=== PATIENT | female | born 1950 | race Asian ===

== ENCOUNTER 2017-03-23 10:33 | Observation (INO) | payer MEDICARE, OTHER ==
[2017-03-23] VITALS (8 sets, daily range): BP systolic 110–168; BP diastolic 60–79; PULSE 83–92; RESP 16–22; O2SAT 95–99
[~2017-03-23] VITALS: Ht 142.2 cm; Wt 45.8 kg
--- NOTE | 2017-03-23 11:01 | ED.REPORT ---
HPI-Chest Pain 40 and Over Date of Service Mar 23, 2017 ED Provider: Emeli Jefferson MD Patient is a 67 woman with diabetes mellitus, glaucoma, osteoporosis, and neuropathy who presents with increasing chest pain over the last 8 months. Initially this pain was happening approximately one time per month and over the last 2 months has increased in frequency and duration and is now occurring approximately 2 times per day. She was visiting her product management internship's office today with some mild exertion and emotional upset she had onset of chest pain that is heavy in her chest and feels like she has just been punched. She has had no medical treatment prior to arrival. EKG in product management internship's office shows right bundle branch block. It is unclear if this is new or chronic. Patient does not have a history of hypertension and is on multiple medications for diabetes and glaucoma but no heart medications at this time. She endorses associated shortness of breath with some coughing and gagging. She had some mild headache over the last couple of days and has not had any today. She does not typically have headaches. She is having chronic low back pain, she has been previously diagnosed with compression fractures due to her osteoporosis. She is having no abdominal pain or localized weakness. Medications include: Gabapentin 300 mg daily Glipizide 10 mg twice a day Latanoprost Metformin 1000 mg twice a day Nexium 40 mg daily NovoLog per sliding scale Triamcinolone cream Nursing Notes Stated Complaint: CP Chief Complaint: Chest Pain Nursing Notes Reviewed: Yes Allergies: Coded Allergies: No Known Allergies (Unverified , 03/23/17) Scheduled Glipizide (Glipizide) 5 Mg Tablet 5 MG PO BID Insulin Aspart (NovoLOG U100 Insulin Vial) 100 U/Ml U 1 UNIT SUBQ ACHS Insulin Lispro (HumaLOG U100 Insulin Pen) 100 Unit/1 Ml Insuln.pen 45 UNIT SUBQ HS Blood Sugar Lispro Correction <151 0 units 151-175 1 unit 176-200 2 units 201-225 3 units 226-250 4 units 251-275 5 units 276-300 6 units 301-325 7 units 326-350 8 units 351-375 9 units 376-400 10 units >400 12 units Check blood sugars before meals and at bedtime. Use correction factor only before meals. Metformin (Metformin) 500 Mg Tablet 1,000 MG PO BID General Time Seen by MD: 11:02 Chief Complaint Chest pain Hx Obtained From: Patient Arrived By: Walk-in Sudden in Onset?: Yes Onset Occurred: Just prior to arrival Location: : Substernal Quality: Heaviness Severity: Current: Pain level 2 out of 10 Risk Factors HEART Score HEART for MACE: High index of susp (2), Age 65 or over (2), 1-2 CAD risk factors (1) HEART for MACE Score: 4-7 (mod risk 12%-16.6%) Well's Criteria for PE Well's PE Score: 0-2 pts (low risk 3.6%) Past Medical History Past Medical History Diabetes mellitus type II Glaucoma Osteoporosis Diabetic neuropathy Past Surgical History Cholecystectomy Multiple Dental procedures Smoking History Never Smoker Social History Alcohol Use: Denies alcohol use Drug Use: Denies drug use Other Social History: Ambulatory Status Independent Review of Systems A comprehensive review of systems was conducted with the patient and found to be negative except as above in the History of Present Illness. Physical Exam Initial Vital Signs Vital Signs (First) Date Time Temp Pulse Resp B/P Pulse Ox O2 Delivery O2 Flow Rate FiO2 03/23/17 10:37 36.6 85 18 139/60 99 Room Air Initial VS: Reviewed Head / Eyes: Atraumatic, Normocephalic ENT: Mucous membranes moist, Conjunctiva normal, No scleral icterus Neck: Supple, Non-tender Lymphatic: No lymphadenopathy Extremities: Vascular intact, Neuro intact, No swelling, No tenderness Skin: Warm, Dry, No cyanosis Neurologic: Alert, Oriented, Nonfocal Psychiatric: Mood/affect normal, Behavior normal, Normal thought content General/Constitutional: Awake, Alert, No acute distress, Well appearing Respiratory / Chest: Breath sounds NL, Breath sounds = bilat, No respiratory distress, No rales, No rhonchi, No wheezing, No chest tenderness Cardiovascular: Heart rate NL, Regular rhythm, Heart sounds NL, No murmurs, Peripheral circulation NL, Pulses = bilaterally, No gross BP differential Abdomen: Soft, Non-tender Interpretation & Diagnostics Initial troponin negative Lab Results Interpretation Result Diagram: 03/23/17 1050 03/23/17 1050 Test 03/23/17 10:50 White Blood Count 7.0th/mm3 (3.8-10.1) Red Blood Count 4.19mil/mm3 (3.90-5.20) Hemoglobin 12.6g/dL (12.0-15.6) Hematocrit 37.8% (35.0-46.0) Mean Corpuscular Volume 90.2fL (81-100) Mean Corpuscular Hemoglobin 30.1pg (27.0-35.0) Mean Corpuscular Hemoglobin Concent 33.3% (32.0-37.0) Red Cell Distribution Width 12.6% (12.3-15.4) Platelet Count 290bil/L (150-400) Neutrophils (%) (Auto) 68.4% (40-74) Lymphocytes (%) (Auto) 22.8% (14-46) Monocytes (%) (Auto) 6.2% (4-12) Eosinophils (%) (Auto) 1.9% (0-5) Basophils (%) (Auto) 0.4% (0-3) Sodium Level 139mEq/L (134-144) Potassium Level 4.3mEq/L (3.5-5.2) Chloride Level 100mEq/L (97-108) Carbon Dioxide Level 23mmol/L (18-29) Blood Urea Nitrogen 13mg/dL (8-27) Creatinine 0.57mg/dL (0.57-1.00) Estimat Glomerular Filtration Rate 152mL/min (>59) Glucose Level 245mg/dL (60-99) Calcium Level 9.3mg/dL (8.5-10.1) Magnesium Level 1.9mg/dL (1.6-2.6) Total Bilirubin 0.4mg/dL (0.0-1.2) Aspartate Amino Transf (AST/SGOT) 24U/L (0-50) Alanine Aminotransferase (ALT/SGPT) 33U/L (0-32) Alkaline Phosphatase 94U/L (25-165) Troponin T 0.010ug/L (0.0-0.011) Total Protein 7.3g/dL (6.4-8.4) Albumin 4.2g/dL (3.4-5.0) Thyroid Stimulating Hormone (TSH) 1.710uIU/mL (0.450-4.500) ECG Interpretation ECG Interpretation: Sinus rhythm at a rate of 80 Right bundle-branch block Possible ST elevation in V5 and V6 Time: 10:42 Interpreted by: ED physician X-Ray Chest Interpretation Chest Xray Interpretation: Normal for age, source of chest pain not seen Interpretation / Wet Read by: Interpret - Radiologist Re-Eval/Medical Decision Med Decision/Clinical Course Patient is a 67 woman with diabetes mellitus, glaucoma, osteoporosis, and neuropathy who presents with increasing chest pain over the last 8 months that has happened once or twice daily for the last 2 months. She has exacerbation of symptoms with mild exertion. Wells score is 0 which means she is low risk for pulmonary embolism. She has no associated upper back pain, normal chest x- ray. She has clear heart and lungs sounds, and equal pulses bilaterally in all 4 extremities, additionally she has no history of vomiting. All of which make cardiac tamponade, aortic dissection, tension pneumothorax, and esophageal rupture unlikely. Case was discussed with Dr. Gross her product management internship who recommends admission for observation and cardiac catheterization tomorrow. On- call product management internship Dr. Jean was contacted who agrees to see patient. Patient is admitted for unstable angina. Records from [facility] in [facility] were requested as patient had a cardiac intervention there approximately 2 years ago. Patient received 324 mg aspirin and one sublingual nitroglycerin after which her chest pain completely resolved. Lovenox, and 1 inch Nitropaste were administered prior to transfer to floor. Consultation : Referral / Consult Name: Renee Jean MD Consulted With: Cardiology Call Returned at: 12:59 Cabin Equipment Supervisor: Will see patient, Agrees with eval, Agrees with plan Counseled Regarding: Diagnosis, Lab results, Need for admission Discharge & Departure Shift Change Sign-Out Response to Therapy: Improved Primary Impression: Chest pain on exertion Additional Impression: Unstable angina Disposition: ADMITTED TO HOSPITAL Discharge Condition All VS Reviewed: Yes Condition: Stable Attending Statement Patient seen and examined with Dr. Cardona. Increasing unstable angina today anginal episode with minimal exertion not relieved with rest all occurring at her product management internship's office during her consultation first appointment with him. Initial blood work is unremarkable. Working on obtaining Lab results and reports from hospital in [place] from 2014. Pain-free after nitroglycerin. Given subcutaneous Lovenox has Nitropaste in place. He was initially very reluctant to stay in the hospital due to her disabled needing her help. Discussed the very real concern of dying from a heart attack if she were to go home and she opted to reevaluate her options admitted to the hospitalist service. Cardiology consult. Probable cardiac catheterization tomorrow. EKG shows bundle branch no priors for comparison no obvious STEMI. copies to: Elizabeth Tanner DO; Gal Gross MD; Renee Jean MD, Erika R DO Mar 23, 2017 11:01 Kell Duarte Mar 23, 2017 13:00 Emeli Jefferson MD Mar 23, 2017 14:45
[2017-03-23 11:10] LABS: BASOPHILS % (AUTO) 0.4 % (0-3); EOSINOPHILS % (AUTO) 1.9 % (0-5); MONOCYTES % (AUTO) 6.2 % (4-12); Mean Corpuscular Hemoglobin 30.1 pg (27.0-35.0); Mean Corpuscular Volume 90.2 fL (81-100); NEUTROPHILS % (AUTO) 68.4 % (40-74); Platelet Count 290 bil/L (150-400)
--- NOTE | 2017-03-23 11:15 | DRSVH ---
PROCEDURE: X-RAY CHEST ONE VIEW, PORTABLE ([id number]) INDICATIONS: CP TECHNIQUE: One view of the chest was acquired. COMPARISON: None. FINDINGS: Surgical changes and devices: None. Lungs and pleura: No pleural effusions or pneumothorax. Lungs are clear. Mediastinum: Mediastinal contours appear normal. Heart size is normal. Bones and chest wall: No suspicious bony lesions. Overlying soft tissues appear unremarkable. IMPRESSION: Normal for age, source of current symptoms is not seen. Dictated by: John Vanegas M.D. on 03/23/2017 at 11:13 Approved by: John Vanegas M.D. on 03/23/2017 at 11:13
[2017-03-23 11:31] LABS: TROPONIN T 0.01 ug/L (0.0-0.011)
[2017-03-23 11:42] LABS: Magnesium 1.9 mg/dL (1.6-2.6)
[2017-03-23] MEDS ORDERED: Nitroglycerin 2% 1 Gm Ointment TOPICAL SCH (13:10)
[2017-03-23] MEDS ORDERED: Nitroglycerin 2% 1 Gm Ointment TOPICAL ONE (13:52)
[2017-03-23] MEDS ORDERED: Polyethylene Glycol (PEG) 17 Gm Powder PO PRN (13:55)
[2017-03-23] MEDS ORDERED: Ondansetron 2 mg/mL 2 mL Inj IVPUSH PRN (13:55)
[2017-03-23] MEDS ORDERED: Atropine 1 mg/10 mL (Code) Syringe IVPUSH PRN (13:55)
[2017-03-23] MEDS ORDERED: Senna-Docusate 8.6-50 mg Tablet PO PRN (13:55)
[2017-03-23] MEDS ORDERED: Alum-Mag Hydrox-Simeth 30 mL Suspension PO PRN (13:55)
[2017-03-23] MEDS: 0.9% Sodium Chloride 1,000 ML IV SCH (15:07)
[2017-03-23] MEDS ORDERED: Glucose 40% Oral Gel 15 Gm Tube PO PRN (15:20)
--- NOTE | 2017-03-23 15:24 | PCM.HPMED ---
Subjective Date of Service Mar 23, 2017 Primary Provider: Admitting Physician: Bonifacio Bach MD Primary Care Physician: Nopalessandro Attending Physician: Bonifacio Bach MD Chief Complaint: Chest pain History of Present Illness: Patient is a 67-year-old female with diabetes with neuropathy and osteoporosis who presents to the emergency department from Dr. Sanchez office due to 8 months of intermittent 2 out of 10 left-sided, nearly substernal chest pain with associated shortness of breath. Patient states that this occurs sitting on the couch and when cooking, but she does not feel that they are connected to exertion. These episodes and getting more frequent, where it used to be one every couple weeks it is now happening twice daily. While in office today the patient had an episode of this chest pain and describes it as sharp and nonradiating, but was associated with shortness of breath. There was no diaphoresis, nausea, lightheadedness, dizziness, or racing heartbeat. Patient states that her last stress test was done in 2010 due to similar chest pain which was normal. Dr. Jean saw the patient in cardiology consultation in the emergency room.. In the emergency department the patient's EKG showed a possible new right bundle branch block with some non-specific ST changes. Troponin was negative, as was chest x-ray. Blood work was unremarkable except for very mild elevation in ALT and blood glucose of 245. Nitroglycerin was administered which decreases the pain. The patient was still on nitroglycerin patch when interviewed and stated that the pain was coming back in the same spot. Therefore the patient was brought in under observation to the hospitalist service for further evaluation and treatment. Review of Systems: General: The patient has no fever, chills or diaphoresis. The patient has no recent weight loss. HEENT: Patient has a mild headache. The patient states that she normally does not get headaches. Patient has no diplopia, patient has no changes in vision. Patient has no problems with her ears, nose or throat. Patient has no known dental problems. Patient has no pharyngitis or history of thrush. Neck: Patient has no stiffness in the neck. Patient has no lymphadenopathy. Patient has no other problems with their neck. Pulmonary: Patient has no shortness of breath, no cough, no expectoration of sputum. Patient has no pleurisy. Patient has no chest pain. Patient has no history of asthma or COPD. Cardiovascular: Patient has no chest pain. Patient has no history of heart murmur. Patient has no palpitations. Patient has no history of myocardial infarction. Patient has no history of coronary artery disease. Gastrointestinal: Patient has no history of hepatitis A, B or C. Patient has no history of peptic ulcer disease. Patient has no history of gastroesophageal reflux disease. Patient has no history of nausea, vomiting, or diarrhea. Patient has no history of hematemesis, hematochezia, or melena. Patient has no history of colitis. Renal: Patient has no history of kidney disease. The patient states that she had one kidney stone pass one time and it was the most painful thing she is ever experienced. Genitourinary: Patient has no history of dysuria, frequency, or incontinence. Patient has no previous history of genitourinary problems. Musculoskeletal: Patient has no history of muscular skeletal problems. Neurologic: Patient has no history of stroke, no history of seizure, no history of TIA. Psychiatric: Patient has no history of psychiatric problems. The remainder of the entire review of systems was reviewed with patient and is as mentioned above otherwise negative. Allergies Coded Allergies: No Known Allergies (Unverified , 03/23/17) Home Medications Gabapentin 300 mg daily Glipizide 10 mg twice a day Latanoprost Metformin 1000 mg twice a day Nexium 40 mg daily NovoLog per sliding scale Triamcinolone cream PMH Diabetes mellitus type II Glaucoma Osteoporosis Diabetic neuropathy Surgical History Cholecystectomy Multiple Dental procedures Family History Father in late 50s of diabetes and cardiac disease; also had a brain tumor Mother of 84 from what sounds like sudden cardiac Social History Hx Alcohol Use: No Hx Substance Use: No Hx Tobacco Use: No Smoking Status: Never Smoker Living Arrangement: with Family Additional Information The patient was born in [place] and then was raised in [place] where she graduated high school. Patient took some college classes but never graduate. Patient worked for [employer] with her . Her and her came on a vacation to [place] and [facility] [place] the area and moved to the [facility] years ago. Patient worked for [employer] until her hand was crushed and she was able to have surgery on her hand a year later. Meanwhile, she was fired from her job. Patient states she never smoked, and never drank and she never did drugs. Patient has been for 45 years. The patient is 4 para 4 M1 and has 1 set of twins. The patient lives with her in [place]. Exam Vital Signs Vital Sign - Last Date Time Temp Pulse Resp B/P Pulse Ox O2 Delivery O2 Flow Rate FiO2 03/23/17 13:23 84 22 110/77 99 Room Air 03/23/17 10:37 36.6 Exam General: Patient is in no apparent distress. HEENT: Head is atraumatic and normocephalic. Eyes: Pupils are equally round and reactive to light and accommodation. Extraocular muscles are intact. Sclera are white, anicteric. Subconjunctival mucosa is pink. Ears and nose are unremarkable. Oropharynx: There is no mucosal lesions, there is no thrush, there is no pharyngitis. Neck: Is supple, there are no nodes, or masses or tenderness. Chest: Is clear to auscultation and percussion. There are no rales, rhonchi, wheezes or rubs. Heart: Rate, rhythm is regular. There is no murmur, rub or gallop. Abdomen: Good bowel sounds are present. Abdomen is soft, nontender, no organomegaly or masses were appreciated. Extremities: Are symmetrical and well perfused. There is no edema, there is no cellulitis, no rash. Neurologic: There are no focal neurological deficits. Cranial nerves II through XII are intact. There are no sensory or motor deficits. Psychiatric: Patients mood is calm and shows no sign of agitation. Genital: Deferred Rectal: Deferred Musculoskeletal: Patient is tender to palpation over the area that she complains of chest pain; she states the pain was re-created on palpation Lab and Diagnostics Result Diagram: 03/23/17 1050 03/23/17 1050 X-Rays, CTs and MRIs Chest x-ray Normal for age, source of current symptoms is not seen. Dictated by: John Vanegas M.D. on 03/23/2017 at 11:13 12-lead ECG Appears to be normal sinus rhythm with right bundle branch block, rate of 80. Assessment & Plan Patient is a 67-year-old female with reported type I diabetes with neuropathy who presents emergency department from her power engineer office due to 8 months of intermittent mild to moderate left-sided chest pain that was re-created on palpation. However due to a strong family history, long-standing diabetes mellitus and nature of description of chest pain the patient was brought in under observation to the hospitalist service for further evaluation and treatment Acute chest pain; present on admission; ongoing -Last stress test was in 2010 and was negative; done due to similar symptoms; initially concerned for unstable angina -Symptoms have resolved; unsure whether nitroglycerin was really effective or not as the pain was returning while wearing nitroglycerin patch -Discussed with Dr. Jean who will consult and his defense attorney seen the patient. We appreciate her time and expertise. -Perfusion stress test ordered for a.m. -Trend troponins -The patient was Loaded with Plavix and daily doses of 75 mg a day have been ordered. - The patient has been placed on therapeutic doses of Lovenox -Continue Aspirin -Atorvastatin started -EKG tomorrow morning Diabetes with neuropathy; present on admission; ongoing -Patient reports she has had this disease since she was a baby -Records indicate this is type II diabetes and patient is on glipizide and metformin which would be interesting if she was a type I -Patient is also taking NovoLog on a sliding scale -Gabapentin for neuropathy -We will start patient on 10 units of Lantus today -A1c ordered -Low-dose lispro correctional -Hold metformin and glipizide -Consider stopping glipizide on discharge as patient is also on insulin and this increases risk of hypoglycemia Glaucoma; present on admission; stable -Continue latanoprost Disposition: Patient has been admitted to the general medical floor under observation. Dr. Jacqueline Armenta will follow in a.m. Full code Pain Evaluation: Adequate Pain Control VTE Prophylaxis: Sub-Q Enoxaparin Resuscitation Status: CPR: Attempt Resuscitation Dennis Jackman DO Mar 23, 2017 13:34 Bonifacio Bach MD Mar 23, 2017 23:44
[2017-03-23] MEDS ORDERED: METF500T4 PO (15:36)
[2017-03-23] MEDS ORDERED: INSU100C8 SUBQ (15:36)
[2017-03-23] MEDS ORDERED: GLPZ5T PO ×2 (15:36→16:34)
[2017-03-23] MEDS ORDERED: INSU100I18 SUBQ (15:36)
[2017-03-23] MEDS: Sodium Chloride LOK Flush 10 mL Syringe IVFLUSH SCH ×2 (16:13→22:43)
[2017-03-23] MEDS ORDERED: GABA-502 PO (16:32)
[2017-03-23] MEDS ORDERED: GLIP10TA10 PO (16:35)
[2017-03-23] MEDS ORDERED: TR5C15 TOP (16:42)
[2017-03-23] MEDS ORDERED: LATA2.5D6 BOTH_EYES (16:42)
[2017-03-23] MEDS ORDERED: INSU100I SUBQ (16:42)
[2017-03-23] MEDS ORDERED: ESOM40CA41 PO (16:42)
[2017-03-23] MEDS: Insulin LISPRO 300 Unit/3 mL Inj SUBQ SCH ×2 (17:10→21:29)
--- NOTE | 2017-03-23 17:53 | CONS ---
[address] [address] CONSULTATION REPORT PATIENT: MORTEZA DIXON : 1950 MR#: [id number] ADMIT: 03/23/2017 JOB ID: [id number] DATE OF SERVICE: 03/23/2017 CHIEF COMPLAINT: Chest pain. HISTORY OF PRESENT ILLNESS: The patient is a 67-year-old woman with type 1 diabetes and what sounds like some insulin resistance; complicated by retinopathy and neuropathy. The patient reports chest discomfort that occurs without a pattern of trigger. She says it can occur when she is lying in bed, reading or watching TV. It feels sharp. It does not radiate. It is associated with shortness of breath. She reported to Cardiology Clinic for a new patient visit with Dr. Gross today. Unfortunately, she had a disagreement with the front office staff. As a result, the EKG obtained in clinic during chest discomfort demonstrated a normal sinus rhythm, normal axis, no left ventricular hypertrophy, no ST-segment changes and right bundle-branch block. The patient was referred to the emergency department for further evaluation. She was evaluated by ER physician Dr. Jefferson. Her troponin was negative. Pain responded favorably to a single sublingual nitroglycerin and Cardiology was consulted to assist with management. PAST MEDICAL HISTORY: Diabetes-hemoglobin A1c is pending. Patient just recently established with a primary care provider, Dr. Walker, at the residency clinic. No recent labs are available for review. The patient says she was instructed to obtain an insulin pump, but did not follow through instruction of multiple endocrine specialists. She says she had what sounds like proliferative retinopathy treated by "eye surgery." The patient denies any hospitalizations for heart disease. She reports having had a screening stress test in [place] but was never a patient who underwent cardiac catheterization. PAST SURGICAL HISTORY: Cholecystectomy and "eye surgery" for what sounds like proliferative retinopathy. FAMILY HISTORY: She says multiple family members have diabetes. The only sibling that is alive is her "baby brother" who does not have diabetes. SOCIAL HISTORY: She is . She is back in the area of [facility] after coming back here from [place] two years ago. She recently established with Dr. Walker and has not had any labs yet. This patient is a lifetime nonsmoker. She resides with her disabled and her disabled adult son. ROS: chest pain and fatigue; otherwise 10 point ROS is negative. ALLERGIES: No known drug allergies. HOME MEDICATIONS: Patient takes no medications that are prescribed by a physician, but she buys medications from a [facility] without a prescription. She does not take aspirin. She says "I weaned myself off of old pills" for hyperlipidemia and heart health. She takes metformin 1000 mg twice a day. She does not know if it is extended release or short-acting. She takes glipizide 5 mg twice a day. She takes Neurontin 300 mg once a day. She reports NovoLog on a sliding scale insulin, but it is a little bit unclear what she takes for long-acting. She says she takes long-acting Humalog 45 units at night but cannot tell us whether it is 70/30 or what exactly she is taking. PHYSICAL EXAMINATION: Vital signs: Temperature 36.3, blood pressure 153/79, pulse 85 beats per minute. Satting 97% on room air. Very pleasant lady in no apparent distress. Eyes: No scleral icterus. Neck is supple. No lymphadenopathy. No carotid bruits. Heart normal S1, S2. No murmurs, rubs, or gallops. Lungs: Clear to auscultation anteriorly. Abdomen is soft, positive bowel sounds. No hepatosplenomegaly. Extremities: Warm, well perfused. No clubbing, cyanosis, or edema. Skin: No rashes or lesions. EKG: Right bundle-branch block. LABS: Show negative troponin x1. TSH is normal. Electrolytes are normal. Liver function is normal. CBC is normal. ASSESSMENT AND PLAN: This is a 67-year-old woman with a significant coronary disease risk factors of uncontrolled longstanding diabetes since she was a teenager as well as medication noncompliance. It sounds like her chest discomfort is somewhat atypical in that it is not triggered by exertion. It also feels sharp. But, it is somewhat compelling just given the degree of her poor glycemic control, and the fact that it was alleviated by sublingual nitroglycerin. I recommend serial troponins every 8 hours. If they remain negative by tomorrow, she would benefit from noninvasive ischemic evaluation via graded exercise stress test with myocardial perfusion imaging. Additionally, I think she would benefit from echocardiogram. However, if her troponins are elevated, she would benefit from invasive evaluation via cardiac catheterization. I discussed the case with Dr. Brito and Dr. Jefferson. Thank you very much for the opportunity to participate in this patient's care. LAKESHIA
--- NOTE | 2017-03-23 18:45 | NUR ---
Admit to [facility] Patient report called by ED nurse. Patient arrived to room 3028 via gurney. Patient oriented to room, staff, call light, and visiting hours. Patient med rec completed. Patient was going to call her to bring in her medications to use her insulin, but was informed no outside medications are to be used in the hospital. Patient became anxious and mentioned leaving AMA, but nurse explained that insulin and other medications would be ordered here at the hospital. Patient was understanding no skin issues notice. Patient denied chest pain and any other pain. Patient does have nitro paste on chest.
[2017-03-23] MEDS ORDERED: Insulin GLARgine 100 Unit/mL Syringe SUBQ SCH (21:00)
[2017-03-23 21:51] LABS: Creatine Kinase 79 U/L (21-215)
--- NOTE | 2017-03-23 23:33 | NUR ---
refused Lantus Pt's BG @HS was 147. Pt refused Lantus because she stated that it doesn't work on her. She further reported that her cap sewer has change it to Novolog and Humalog.
[2017-03-24 00:38] VITALS: BP 138/71; PULSE 79; RESP 16; O2SAT 96
[2017-03-24 04:27] VITALS: BP 165/76; PULSE 68; RESP 16; O2SAT 98
[2017-03-24] MEDS: 0.9% Sodium Chloride 1,000 ML IV SCH ×2 (05:08→14:53)
--- NOTE | 2017-03-24 05:32 | NUR ---
chest discomfort Pt started having 5/10 chest discomfort, "just like at home", around 5AM for few minutes. no changes on tele. Pt sleeping at this time. NPO since midnight for stress test this AM.
[2017-03-24 05:37] LABS: APPEARANCE,URINE CLEAR (CLEAR,HAZY); COLOR,URINE STRAW (YELLOW); OCCULT BLOOD,URINE TRACE (NEGATIVE); PH,URINE 5.5 (5.0-8.0); UROBILINOGEN,URINE NORMAL (NORMAL)
[2017-03-24 07:29] LABS: BASOPHILS % (AUTO) 0.5 % (0-3); EOSINOPHILS % (AUTO) 3.3 % (0-5); MONOCYTES % (AUTO) 7.9 % (4-12); Mean Corpuscular Hemoglobin 30.1 pg (27.0-35.0); Mean Corpuscular Volume 90.9 fL (81-100); Platelet Count 273 bil/L (150-400)
[2017-03-24] MEDS: Insulin LISPRO 300 Unit/3 mL Inj SUBQ SCH ×2 (08:00→12:08)
[2017-03-24] MEDS: Sodium Chloride LOK Flush 10 mL Syringe IVFLUSH SCH (08:30)
[2017-03-24 10:55] VITALS: PULSE 72
--- NOTE | 2017-03-24 12:34 | PCM.PNMED ---
Subjective Date of Service Mar 24, 2017 Subjective Patient seen and examined. She is after stress test. No chest pain at this point. She relates her chest pain to anxiety. Vitals stable. Exam Vital Signs Vital Sign - Last Date Time Temp Pulse Resp B/P Pulse Ox O2 Delivery O2 Flow Rate FiO2 03/24/17 10:55 72 03/24/17 04:27 36.7 16 165/76 98 Room Air Intake and Output 03/23/17 03/23/17 03/24/17 Cumulative From/Thru 15:00 23:00 07:00 03/23/17 10:37 - 03/24/17 06:36 Intake Total 362 ml 1187 ml 1549 ml Output Total 1050 ml 1050 ml Balance 362 ml 137 ml 499 ml Intake Oral 250 ml 340 ml 590 ml IV Total 112 ml 847 ml 959 ml Output Urine Total 1050 ml 1050 ml # Voids 1 1 Exam General: Patient is in no apparent distress. Neck: Is supple, there are no nodes, or masses or tenderness. Chest: Is clear to auscultation and percussion. There are no rales, rhonchi, wheezes or rubs. Heart: Rate, rhythm is regular. There is no murmur, rub or gallop. Abdomen: Good bowel sounds are present. Abdomen is soft, nontender, no organomegaly or masses were appreciated. Neurologic: There are no focal neurological deficits. Cranial nerves II through XII are intact. There are no sensory or motor deficits. Psychiatric: Patients mood is calm and shows no sign of agitation. Lab and Diagnostics Result Diagram: 03/24/17 0705 03/24/17 0705 X-Rays, CTs and MRIs Chest x-ray Normal for age, source of current symptoms is not seen. Dictated by: John Vanegas M.D. on 03/23/2017 at 11:13 12-lead ECG Appears to be normal sinus rhythm with right bundle branch block, rate of 80. Cardiac Echo Impressions Interpretation Summary The left ventricle is normal in size. There is moderate proximal septal thickening noted. There is no echo evidence for significant left ventricular outflow tract obstruction. The left ventricular ejection fraction is normal. The ejection fraction is estimated to be 60-65%. There are no focal wall motion abnormalities. Assessment of diastolic parameters indicates a relaxation abnormality of the left ventricle, consistent with normal filling pressures. The right ventricle is normal in size, thickness and function. The right ventricular systolic pressure is estimated at least 25 mmHg assuming a right atrial pressure of 3 mm Hg. The left atrial size is normal. Right atrial size is normal. There is no significant valvular heart disease. The aortic root is normal size. Additional Diagnostics Stress test IMPRESSION: This is a normal myocardial perfusion. There is no evidence of fixed or reversible perfusion defects. LV ejection fraction is normal. Stress EKG is normal. Patient denied any chest pain during treadmill study. The patient has excellent exercise capacity. 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 However due to a strong family history, long-standing diabetes mellitus and nature of description of chest pain the patient was brought in under observation to the hospitalist service for further evaluation and treatment Acute chest pain; present on admission; ongoing -Last stress test was in 2010 and was negative; done due to similar symptoms; initially concerned for unstable angina -Symptoms have resolved; unsure whether nitroglycerin was really effective or not as the pain was returning while wearing nitroglycerin patch -Discussed with Dr. Jean who will consult and his personal injury attorney seen the patient. We appreciate her time and expertise. -Perfusion stress test done, pending result - Echo ordered -The patient was Loaded with Plavix and daily doses of 75 mg a day have been ordered. - The patient has been placed on therapeutic doses of Lovenox -Continue Aspirin -Atorvastatin started Diabetes with neuropathy; present on admission; ongoing -Patient reports she has had this disease since she was a baby -Records indicate this is type II diabetes and patient is on glipizide and metformin which would be interesting if she was a type I -Patient is also taking NovoLog on a sliding scale -Gabapentin for neuropathy -We will start patient on 10 units of Lantus -A1c 8.5 -Low-dose lispro correctional -Hold metformin and glipizide Glaucoma; present on admission; stable -Continue latanoprost Disposition: Patient has been admitted to the general medical floor under observation. Full code VTE Prophylaxis: Sub-Q Enoxaparin VTE Mechanical Devices: Venous Foot Pump Resuscitation Status: CPR: Attempt Resuscitation Time spent 35 mins Joel Phillips MD Mar 24, 2017 12:34
--- NOTE | 2017-03-24 12:50 | NUR ---
Social Work-initial assessment. readiness for discharge: Data:See initial assessment. Pt is a 67 y/o female who was admitted on 03/23/17 for unstable angina per H&P. Pt's insurance is [employer] and PCP is not listed. EMR reviewed. Pt's readmission score is 3-high risk. SW met with pt to discuss discharge planning, SW role explained. Pt is alert and oriented x3. Pt resides at home with her where she remains independent with ADLS. Pt drives and does not use any DME. Pt has no HH or SNF history. Pt has no intermediate care insurance or VA benefits. SW discussed DPOA/ advanced directive, pt confirms she has not completed this and is not interested in any information. Pt is working on PCP in this community. SW provided pt with discharge planning checklist and encouraged her to call with any questions, phone number provided. Per RN notes, pt has been up independent in his room. No anticipated discharge needs. SW will continue to follow if needs arise. Assessment:Pt who is independent at baseline. Plan:Pt to discharge home today via POV. No anticipated discharge needs. SW will continue to follow if needs arise. SYDNEE Persaud Addendum: 03/24/17 at 1256 by ADA QURESHI Amended: Links added.
[2017-03-24 13:58] VITALS: BP 160/72; PULSE 85; RESP 16; O2SAT 98
--- NOTE | 2017-03-24 14:25 | DRSVH ---
PROCEDURE: 1 DAY TREADMILL STRESS TEST Rest and exercise myocardial perfusion SPECT with gated imaging and ejection fraction RADIOPHARMACEUTICAL: 8.6 mCi Tc-99m tetrafosmin IV at rest and 25.2 mCi Tc-99m tetrafosmin IV at peak exercise. [id number] was performed. INDICATIONS: CP. TECHNIQUE: Radiopharmaceutical was injected at peak stress test, and also at rest. SPECT images wer e obtained. SPECT myocardial perfusion images were displayed in short axis, horizontal long axis, an d vertical long axis views. Gated images were reviewed using iGo[employer] s.r.l.QUANT software. COMPARISON: None. CARDIAC STRESS: A standard [place] treadmill exercise tolerance test was performed by the patient under the supervision of an attending staff. The patient exercised for 10 minutes and 20 seconds; functional aerobic impa irment (DALE) is -70 %. Hemodynamic data: There is normal blood pressure and heart rate response to exercise stress. Patien t achieved 90% of maximum predicted heart rate at peak exercise. Symptoms: Patient denied chest pain during exercise. EKG: No diagnostic EKG changes of ischemia; no ectopy. FINDINGS: Raw data: There is good myocardial labeling by radiotracer. No significant motion artifacts. Left ventricle function: Gated images demonstrate normal left ventricle wall thickening. No segment al wall motion abnormality. The left ventricle resting end-diastolic volume is 45 mL. Left ventricl e stress ejection fraction is >70% ; normal values are above 45%. Myocardial perfusion: There is normal distribution of activity in the left and right ventricular robert cardium. No fixed or reversible perfusion defects. IMPRESSION: This is a normal myocardial perfusion. There is no evidence of fixed or reversible perfus ion defects. LV ejection fraction is normal. Stress EKG is normal. Patient denied any chest pain duri ng treadmill study. The patient has excellent exercise capacity. Dictated by: Jesús Muñoz Jr., M.D. on 03/24/2017 at 14:05 Approved by: Jesús Muñoz Jr., M.D. on 03/24/2017 at 14:22
--- NOTE | 2017-03-24 15:13 | DRSVH ---
[facility] [address] [place] [address] Echocardiogram Report Name: MORTEZA DIXON Study Date: 03/24/2017 Height: 56 in Hospital Exam Location: [facility] Weight: 101 lb Gender: Female BSA: 1.3 m2 : 1950 Age: 67 yrs BP: 165/76 mmHg Reason For Study: Chest pain Ordering Physician: Performed By: Sue Harden Referring Physician: OLEKSANDR MANE Interpretation Summary The left ventricle is normal in size. There is moderate proximal septal thickening noted. There is no echo evidence for significant left ventricular outflow tract obstruction. The left ventricular ejection fraction is normal. The ejection fraction is estimated to be 60-65%. There are no focal wall motion abnormalities. Assessment of diastolic parameters indicates a relaxation abnormality of the left ventricle, consistent with normal filling pressures. The right ventricle is normal in size, thickness and function. The right ventricular systolic pressure is estimated at least 25 mmHg assuming a right atrial pressure of 3 mm Hg. The left atrial size is normal. Right atrial size is normal. There is no significant valvular heart disease. The aortic root is normal size. Procedure: A two-dimensional transthoracic echocardiogram with color flow and Doppler was performed. The study quality was technically adequate. There is no prior echocardiogram noted for this patient. The patient was in normal sinus rhythm during the exam. Left Ventricle: The left ventricle is normal in size. There is moderate proximal septal thickening noted. There is no echo evidence for significant left ventricular outflow tract obstruction. The left ventricular ejection fraction is normal. The ejection fraction is estimated to be 60-65%. There are no focal wall motion abnormalities. Assessment of diastolic parameters indicates a relaxation abnormality of the left ventricle, consistent with normal filling pressures. Right Ventricle: The right ventricle is normal in size, thickness and function. Atria: The left atrial size is normal. Right atrial size is normal. There is no Doppler evidence for an interatrial shunt. Mitral Valve: The mitral valve is normal. There is no mitral regurgitation noted. Aortic Valve: The aortic valve is normal in structure and function. There is trace aortic regurgitation. Tricuspid Valve: The tricuspid valve is normal. There is mild tricuspid regurgitation. The right ventricular systolic pressure is estimated at least 25 mmHg assuming a right atrial pressure of 3 mm Hg. Pulmonic Valve: The pulmonic valve leaflets are thin and pliable; valve motion is normal. There is no pulmonic valvular regurgitation. There is no significant valvular heart disease. Great Vessels: The aortic root is normal size. The ascending aorta is normal in size. The aortic arch is normal in size. The pulmonary artery is not well visualized, but is probably normal size. The IVC is of normal diameter and collapses greater than 50% with a sniff. This suggests a low right atrial pressure of 3 mm Hg. Pericardium/ Pleura There is no pericardial effusion. There is no pleural effusion. MMode/2D Measurements & Calculations LVIDd: 3.8 cm RA long axis LVOT diam: 1.9 cm LVIDs: 2.1 cm LA A2 area: 15.4 cm AoV Opening FS: 44.8 % LA A4 area: 14.1 cm RA area EPSS: 0.46 cm LA length (vol) Ao root diam IVSd: 1.4 cm : 11.7 cm LVPWd: 0.86 cm LA vol: 39.6 ml RA vol asc Aorta Diam LA vol index : 27.9 ml RA Ao Arch Diam (Prox : 21.0 mm2 Trans): 2.6 cm IVC diam: 1.6 cm LV choi. diameter/BSA LV sys. diameter/BSA RVD1 (basal) RVD2 (mid): 2.5 cm (cm/m^2): 2.9 (cm/m^2): 1.6 TAPSE: 2.3 cm Doppler Measurements & Calculations Ao V2 max MV E max scott MV E/A: 0.79 TR max scott : 115.0 cm/sec : 65.3 cm/sec Med Peak E' Scott : 231.7 cm/sec Ao max PG MV A max scott TR max PG : 5.3 mmHg : 82.7 cm/sec E/E' med: 12.4 : 21.5 mmHg Ao mean PG MV P1/2t: 57.1 msec Lat Peak E' Soctt PA V2 max : 92.2 cm/sec LVOT Max Scott E/E' lat: 5.9 PA mean PG : 97.6 cm/sec E/e' average: 9.1 PA Accel Time LILY(I,D): 2.3 cm : 0.11 sec sev ratio MV dec time MV P1/2t max scott Ao V2 mean LV V1 max PG : 0.19 sec : 85.6 cm/sec MVA(P1/2t): 3.9 cm2 Ao V2 VTI: 24.7 cm LV V1 VTI LILY(V,D): 2.4 cm2 : 20.1 cm PA V2 mean LILY indexed to BSA : 63.0 cm/sec (cm^2/m^2): 1.8 Reading Physician:PRIYANK
--- NOTE | 2017-03-24 15:57 | PCM.DIMED ---
Discharge Instructions Date of Service Mar 24, 2017 Dates of Hospitalization Mar 23, 2017 at 13:19 Discharge Diagnosis Discharge Diagnosis Costochondritis Diet Discharge Diet: Heart Healthy, Diabetic Activity Discharge Activity: No restrictions Call your provider Call your provider for: Fever or Chills, Chest pain, Vomitting Patient Instructions Follow-up with PCP in: 1 week (Diabetes management ) Joel Phillips MD Mar 24, 2017 15:57
[2017-03-24] MEDS ORDERED: INSU100V7 SUBQ (15:59)
--- NOTE | 2017-03-24 16:02 | PCM.DC.MED ---
Discharge Summary Date of Service Mar 24, 2017 Dates of Hospitalization Date of Hospital Admission Mar 23, 2017 at 13:19 Date of Discharge: Mar 24, 2017 Providers: Admitting Physician: Bonifacio Bach MD Primary Care Physician: Jyoti Attending Physician: Oleksandr Phillips MD Diagnosis at Time of Discharge Diagnosis at Time of Discharge Costochondritis Procedures XRay, CTs & MRIs Chest x-ray Normal for age, source of current symptoms is not seen. Dictated by: John Vanegas M.D. on 03/23/2017 at 11:13 ECG 12 Lead Appears to be normal sinus rhythm with right bundle branch block, rate of 80. Cardiac Echo Impression Interpretation Summary The left ventricle is normal in size. There is moderate proximal septal thickening noted. There is no echo evidence for significant left ventricular outflow tract obstruction. The left ventricular ejection fraction is normal. The ejection fraction is estimated to be 60-65%. There are no focal wall motion abnormalities. Assessment of diastolic parameters indicates a relaxation abnormality of the left ventricle, consistent with normal filling pressures. The right ventricle is normal in size, thickness and function. The right ventricular systolic pressure is estimated at least 25 mmHg assuming a right atrial pressure of 3 mm Hg. The left atrial size is normal. Right atrial size is normal. There is no significant valvular heart disease. The aortic root is normal size. Other Diagnostics Stress test IMPRESSION: This is a normal myocardial perfusion. There is no evidence of fixed or reversible perfusion defects. LV ejection fraction is normal. Stress EKG is normal. Patient denied any chest pain during treadmill study. The patient has excellent exercise capacity. Brief History Patient is a 67-year-old female with diabetes with neuropathy and osteoporosis who presents to the emergency department from Dr. Sanchez office due to 8 months of intermittent 2 out of 10 left-sided, nearly substernal chest pain with associated shortness of breath. Patient states that this occurs sitting on the couch and when cooking, but she does not feel that they are connected to exertion. These episodes and getting more frequent, where it used to be one every couple weeks it is now happening twice daily. While in office today the patient had an episode of this chest pain and describes it as sharp and nonradiating, but was associated with shortness of breath. There was no diaphoresis, nausea, lightheadedness, dizziness, or racing heartbeat. Patient states that her last stress test was done in 2010 due to similar chest pain which was normal. Dr. Jean saw the patient in cardiology consultation in the emergency room.. In the emergency department the patient's EKG showed a possible new right bundle branch block with some non-specific ST changes. Troponin was negative, as was chest x-ray. Blood work was unremarkable except for very mild elevation in ALT and blood glucose of 245. Nitroglycerin was administered which decreases the pain. The patient was still on nitroglycerin patch when interviewed and stated that the pain was coming back in the same spot. Therefore the patient was brought in under observation to the hospitalist service for further evaluation and treatment. 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 However due to a strong family history, long-standing diabetes mellitus and nature of description of chest pain the patient was brought in under observation to the hospitalist service for further evaluation and treatment Acute chest pain; present on admission; ongoing -Stress negative here - Echo as noted above -Continue Aspirin and atorvastatin - likely costochondritis Diabetes with neuropathy; present on admission; ongoing -Patient reports she has had this disease since she was a baby -Patient is also taking NovoLog on a sliding scale -Gabapentin for neuropathy -We will start patient on 10 units of Lantus -A1c 8.5 - continue home metformin, hold glipizide till patient sees pcp/manager icu Glaucoma; present on admission; stable -Continue latanoprost Discharge home with outpatient follow up Exam Vital Signs (Last) Date Time Temp Pulse Resp B/P Pulse Ox O2 Delivery O2 Flow Rate FiO2 03/24/17 13:58 36.1 85 16 160/72 98 Room Air Test 03/23/17 10:50 03/23/17 21:07 03/23/17 23:15 03/24/17 05:15 Hemoglobin A1c 8.5% (4.8-5.6) Magnesium Level 1.9mg/dL (1.6-2.6) Total Bilirubin 0.4mg/dL (0.0-1.2) Aspartate Amino Transf (AST/SGOT) 24U/L (0-50) Alanine Aminotransferase (ALT/SGPT) 33U/L (0-32) Alkaline Phosphatase 94U/L (25-165) Total Protein 7.3g/dL (6.4-8.4) Albumin 4.2g/dL (3.4-5.0) Thyroid Stimulating Hormone (TSH) 1.710uIU/mL (0.450-4.500) Total Creatine Kinase 79U/L (21-215) Creatine Kinase MB 2.1ng/mL (0.0-5.3) Creatine Kinase MB % % (0.0-5.0) Troponin T 0.010ug/L (0.0-0.011) Urine Color Straw (YELLOW) Urine Appearance Clear (CLEAR,HAZY) Urine pH 5.5 (5.0-8.0) Urine Specific Virgil 1.010 (1.003-1.035) Urine Protein Negativemg/dL (NEG,TRACE) Urine Glucose (UA) Negativemg/dL (NEGATIVE) Urine Ketones Negativemg/dL (NEGATIVE) Urine Occult Blood Trace (NEGATIVE) Urine Nitrite Negative (NEGATIVE) Urine Bilirubin Negative (NEGATIVE) Urine Urobilinogen Normalmg/dL (NORMAL) Urine Leukocyte Esterase Small (NEGATIVE) Urine RBC 0-2/hpf (0-2) Urine WBC 0-5/hpf (0-5) Urine Epithelial Cells None/hpf (NONE-MOD) Urine Crystals None seen (NONE SEEN) Urine Bacteria Few/hpf (NONE-FEW) Urine Hyaline Casts None/lpf (NONE) Urine Granular Casts None seen (NONE SEEN) Urine Waxy Casts None seen (NONE SEEN) Urine Red Blood Cell Casts None seen (NONE SEEN) Urine White Blood Cell Casts None seen (NONE SEEN) Urine Mucus None seen (None Seen) Urine Trichomonas None seen (NONE SEEN) Urine Yeast None (NONE SEEN) Urinalysis Comment None Urine Culture Reflexed Indicated Test 03/24/17 07:05 White Blood Count 6.3th/mm3 (3.8-10.1) Red Blood Count 3.96mil/mm3 (3.90-5.20) Hemoglobin 11.9g/dL (12.0-15.6) Hematocrit 36.0% (35.0-46.0) Mean Corpuscular Volume 90.9fL (81-100) Mean Corpuscular Hemoglobin 30.1pg (27.0-35.0) Mean Corpuscular Hemoglobin Concent 33.1% (32.0-37.0) Red Cell Distribution Width 12.5% (12.3-15.4) Platelet Count 273bil/L (150-400) Neutrophils (%) (Auto) 53.0% (40-74) Lymphocytes (%) (Auto) 35.0% (14-46) Monocytes (%) (Auto) 7.9% (4-12) Eosinophils (%) (Auto) 3.3% (0-5) Basophils (%) (Auto) 0.5% (0-3) Sodium Level 140mEq/L (134-144) Potassium Level 4.3mEq/L (3.5-5.2) Chloride Level 105mEq/L (97-108) Carbon Dioxide Level 23mmol/L (18-29) Blood Urea Nitrogen 15mg/dL (8-27) Creatinine 0.66mg/dL (0.57-1.00) Estimat Glomerular Filtration Rate 128mL/min (>59) Glucose Level 197mg/dL (60-99) Calcium Level 9.1mg/dL (8.5-10.1) Triglycerides Level 145mg/dL (0-149) Cholesterol Level 179mg/dL (100-199) LDL Cholesterol, Calculated 108.000mg/dL (0-99) VLDL Cholesterol 29.000mg/dL HDL Cholesterol 42mg/dL (>39) Cholesterol/HDL Ratio 4.26 (0.0-4.4) Discharge Medications Discharge Medications Atorvastatin Calcium (Atorvastatin Calcium) 40 Mg Tablet 40 MG PO HS Prescribed by: OLEKSANDR PHILLIPS MD Esomeprazole Magnesium (Nexium) 40 Mg Capsule.dr 40 MG PO DAILY (Reported) Gabapentin (Gabapentin) 300 Mg Capsule 300 MG PO DAILY (Reported) Glipizide (Glipizide) 10 Mg Tablet 10 MG PO BID (Reported) Insulin Aspart (NovoLOG U-100 Pen) 100 Unit/Ml Insuln.pen 2-15 UNITS SUBQ ACHS ( Reported) Insulin Glargine (Lantus U100 Insulin Vial) 100 Unit/Ml Vial 10 UNIT SUBQ HS Prescribed by: OLEKSANDR PHILLIPS MD Insulin Lispro (HumaLOG U100 Insulin Pen) 100 Unit/1 Ml Insuln.pen 45 UNIT SUBQ HS (Reported) Blood Sugar Lispro Correction <151 0 units 151-175 1 unit 176-200 2 units 201-225 3 units 226-250 4 units 251-275 5 units 276-300 6 units 301-325 7 units 326-350 8 units 351-375 9 units 376-400 10 units >400 12 units Check blood sugars before meals and at bedtime. Use correction factor only before meals. Latanoprost (Latanoprost) 2.5 Ml Drops 1 GTT BOTH_EYES HS (Reported) Metformin (Metformin) 500 Mg Tablet 1,000 MG PO BID (Reported) Triamcinolone Acet (Triamcinolone Acetonide Cream) 4 Applic/Gm Cr 1 APPLIC TOP BID (Reported) Followup Plan Disposition: home Discharge Diet: Heart Healthy, Diabetic Discharge Activity: No restrictions Follow-up with PCP in: 1 week (Diabetes management ) Time spent 35 mins Oleksandr Phillips MD Mar 24, 2017 16:02
[2017-03-24] MEDS ORDERED: ATOR40TA69 PO (16:03)
--- NOTE | 2017-03-24 16:31 | NUR ---
Social Work-discharge: Data:EMR Reviewed. Pt is on day 1 of hospitalization for unstable angina per H&P. Pt is medically stable for discharge. Pt has been up independent in her room. No discharge needs identified. All updated and agreeable to plan. Assessment:Pt who is independent at baseline. Plan:Pt to discharge home today via POV. No discharge needs identified. All updated and agreeable to plan. SYDNEE Persaud
--- NOTE | 2017-03-24 17:05 | NUR ---
Discharge Pt discharged home with via private vehicle. Pt A/O x 4, verbalized understanding of discharge, follow up and new Rx instructions, personal belongings accounted for and left with pt. Pt requested to walk out, pt escorted with to elevators.
--- NOTE | 2017-03-24 17:31 | NUR ---
Late Entry Case Management: Explained BARBA to patient and spouse at 1630, all questions answered. Signed original placed in chart, copy given to patient. Pt refused the Medicare Part D Self-administered Drug info sheet stating all meds are obtained through . Lesley Dias RN
== END 2017-03-24 16:55 | disposition home or self-care (01) ==
LOC: SED 10:33 → MPC 13:19
PROVIDERS: ADMIT Internal Medicine Infectious Disease; ATTEND Internal Medicine
DX: M94.0 Chondrocostal junction syndrome [Tietze] (principal); R07.9 Chest pain, unspecified; E11.42 Type 2 diabetes mellitus with diabetic polyneuropathy; M81.0 Age-related osteoporosis without current pathological fracture; H40.9 Unspecified glaucoma; Z79.84 Long term (current) use of oral hypoglycemic drugs; Z79.4 Long term (current) use of insulin
CPT/HCPCS: 36415; 71010; 78452; 80048; 80053; 80061; 81000; 82550; 82553; 82948; 83036; 83735; 84443; 84484; 85025; 87086; 87088; 93005; 93017; 99285; A9502; C8929; G0463; J1650; J1815; J7030

== ENCOUNTER → 2017-05-18 | Day surgery (SDC) | payer MEDICARE, OTHER ==
[~2017-05-18] VITALS: Ht 144.8 cm; Wt 45.4 kg
[~2017-05-18] MED LIST: 0.9% Sodium Chloride 1,000 ML IV SCH; ATOR40TA69 PO; ESOM40CA41 PO; GABA-502 PO; GLIP10TA10 PO; INSU100I SUBQ; INSU100I18 SUBQ; INSU100I25 SQ; INSU100V7 SUBQ; Insulin Human REGular-Omnicell 100 Unit/mL ONE; Ketamine 10 mg/mL 20 mL Inj ONE; LATA2.5D6 BOTH_EYES; Lactated Ringer's 1,000 ML IV ONE; Lactated Ringer's 1,000 ML IV SCH; METF500T4 PO; MetoCLOpramide 5 mg/mL 2 mL Inj IVPUSH PRN; Ondansetron 2 mg/mL 2 mL Inj IVPUSH PRN; Propofol 10,000 mCg/mL 20 mL Inj ONE; Sodium Chloride LOK Flush 10 mL Syringe IV PRN; TR5C15 TOP; fentaNYL-PF 50 mCg/mL 2 mL Inj IVPUSH PRN
[2017-05-18 11:35] VITALS: BP 119/80; PULSE 103; RESP 16; O2SAT 99
--- NOTE | 2017-05-18 12:15 | PCM.HPANE ---
Patient Data Surgeon Admitting Provider: Attending Provider:Jacky Dorsey MD Primary Care Physician:[facility] Other Provider: Reason for Visit Epigastric Pain Ht/WT & BMI Height (Feet): 4 Height (Inches): 9 Weight (Kilograms): 45.36 Body Mass Index 21.00 Allergies Coded Allergies: No Known Allergies (Unverified , 03/23/17) Past Anesthesia History Anesthesia History: Denies:: Abnormal Airway, Anesthesia Reactions, Difficult Intubation, Fam Anesthesia Reaction, Fam Malignant Hypertherm, Malignant Hyperthermia Diabetes History Hx Diabetes?: Yes Type of Diabetes: Type I Glycemic Control: Insulin & Oral Medication Current Bedside Blood Glucose: 270 MRSA MRSA: No Medications Hypertension Medication: No Home Meds Incl Beta Luca: No Active Scripts Atorvastatin Calcium 40 Mg Igdrkt22 Mg PO HS 30 Days Prov:Joel Phillips MD 03/24/17 Insulin Glargine (Lantus U100 Insulin Vial)100 Unit/Ml Vial10 Unit SUBQ HS 10 Days Prov:Joel Phillips MD 03/24/17 Reported Medications Insulin Detemir (Levemir Flextouch)100 Unit/1 Ml Insuln.pen45 Unit SQ HS 05/15/17 Triamcinolone Acet (Triamcinolone Acetonide Cream)4 Applic/Gm Cr1 Applic TOP BID #15 GM Ref 0 03/23/17 Insulin Aspart (NovoLOG U-100 Pen)100 Unit/Ml Insuln.pen2-15 Units SUBQ ACHS 03/23/17 Esomeprazole Magnesium (Nexium)40 Mg Capsule.dr40 Mg PO DAILY Ref 0 03/23/17 Latanoprost 2.5 Ml Drops1 Gtt BOTH_EYES HS #1 BOTTLE 03/23/17 Glipizide 10 Mg Bygyhq63 Mg PO BID BLOOD SUGAR 30 Days 03/23/17 Gabapentin 300 Mg Voyjrza626 Mg PO DAILY Ref 0 03/23/17 Metformin 500 Mg Tablet1,000 Mg PO BID Ref 0 03/23/17 Insulin Lispro (HumaLOG U100 Insulin Pen)100 Unit/1 Ml Insuln.pen45 Unit SUBQ HS #1 PENINJ Ref 0 Blood Sugar Lispro Correction <151 0 units 151-175 1 unit 176-200 2 units 201-225 3 units 226-250 4 units 251-275 5 units 276-300 6 units 301-325 7 units 326-350 8 units 351-375 9 units 376-400 10 units >400 12 units Check blood sugars before meals and at bedtime. Use correction factor only before meals. 03/23/17 History History of ENT Problems?: Yes HEENT History: Denies:: Abnormal Airway Cataracts Difficult Intubation Dysphagia Hearing Problem Sinus Problem Denture Type: None Teeth Condition: Within Normal Limits Hx of Heart Problems?: Yes Cardiovascular History: Positive for:: Chest Pain (workup negative for cardiac etiology) Denies:: Cardiac Surgery Congestive Heart Failure Edema Heart Murmur Hypertension Irregular Heartbeat Pacemaker Thrombophlebitis Hx of Respiratory Problem?: No Respiratory History: Positive for:: Dyspnea (with chest pain) Pneumonia Denies:: Asthma COPD Chest Surgery Emphysema Hemoptysis Tuberculosis Other Resp Pertinent History: sinus allergies Hx Neurologic Problems?: Yes Neurological History: Positive for:: Headaches Denies:: Alzheimer's Disease CVA Dementia Dizziness Parkinson's Disease Seizures Hx of GI Problems?: Yes Hx of Problems?: Yes Genitourinary History: Positive for:: Kidney Stones Urinary Tract Infection Denies:: HX of Hemodialysis HX of Peritoneal Dialysis: No Female Hx: Denies:: Currently Endometriosis Pelvic Inflammatory Problems with Breasts? Hx Musculoskeletal Problems?: Yes Musculoskeletal History: Positive for:: Back Injury (Osteoporosis with fractured vertabres) Joint Replacement (plates and screw in right hand) Denies:: Fibromyalgia Musculoskeletal Trauma Hx of Psycho/Social Problems?: Yes Psycho Social History: Denies:: Anxiety Bipolar Disorder Hx Depression Suicide Attempt Hx Surgeries?: Yes (hand surgery, gallbladder surgery and eye surgery) Hx Any Other Health Problems?: Yes Other History: Positive for:: Hospitalization Denies:: Cancer Thyroid Disease History Blood Transfusions: Denies:: Blood Transfusions Hx Diabetes: YesBedside Blood Glucose: 270 Hx Alcohol Use: NoHx Substance Use: No Smoking Status: Never Smoker Have You Smoked inLast 12 mo: No Stop/Bang Treated for Sleep Apnea?: No Do You Have a CPAP Machine?: No S-Snoring: Do You Snore Loudly: Yes T-Tired: feel tired, fatigued: Yes O-Obsered: Observed not breath: No P-Blood Pressure: treated: No B- Body Mass Index > 35 kg/m2: No A- Age over 50: Yes N- Neck Large Circumference: No G- Gender Male: No DONNA Total Score: 3 DONNA Risk Assessment: High Risk, =/>3 Yes DONNA Category 4 OutPt Procedure: Yes Risk Assessment Category Category 1A: Patient has history of documented sleep apnea, and HAS NOT received any narcotic, sedative or anesthesia administration during this stay. Category 1B: Patient has history of documented sleep apnea, and HAS received any narcotic , sedative or anesthesia administration during this stay Category 2: Patient has SUSPECTED Obstructive Sleep Apnea, and HAS received any narcotic , sedative or anesthesia administration during this stay. Category 3: Patient has SUSPECTED Obstructive Sleep Apnea and HAS NOT received narcotic, sedative or anesthesia administration during this stay. Category 4: Outpatient in Procedural Areas with known sleep apnea or who screen positive for High Risk via the STOP/BANG questionnaire. Exam Exam Vital Signs Vital Signs Date Time Temp Pulse Resp B/P Pulse Ox O2 Delivery O2 Flow Rate FiO2 05/18/17 11:35 36.2 103 16 119/80 99 Room Air General Appearance: Alert, Oriented X3, Cooperative, No Acute Distress HEENT/AIRWAY: MP 2 Lungs: Clear to Auscultation, Normal Air Movement Heart: Exam Unremarkable, Regular Rate/Rhythm, No Murmurs/Rubs/Gallops Meds/Labs/Diagnostics Bedside Blood Glucose: 270 Plan Impression Patient chart reviewed, patient interviewed and anesthestic plan with risks, benefits, and alternatives discussed, and informed consent obtained. ASA Physical Status: ASA2 Mod Systemic Disease Kamar Maldonado MD May 18, 2017 12:15
[2017-05-18 13:23] VITALS: BP 96/64; PULSE 82; RESP 10; O2SAT 100
[2017-05-18 13:33] VITALS: BP 127/73; PULSE 78; RESP 16; O2SAT 100
[2017-05-18 13:43] VITALS: BP 141/77; PULSE 78; RESP 16; O2SAT 100
[2017-05-18 13:52] VITALS: BP 146/85; PULSE 83; RESP 18; O2SAT 99
--- NOTE | 2017-05-18 16:03 | PCM.ANEP1 ---
Post Anesthesia PACU Phase 1 Assessment Vital Signs Vital Signs Date Time Temp Pulse Resp B/P Pulse Ox O2 Delivery O2 Flow Rate FiO2 05/18/17 13:52 83 18 146/85 99 Room Air 05/18/17 13:43 78 16 141/77 100 Room Air 05/18/17 13:33 78 16 127/73 100 Room Air 05/18/17 13:23 82 10 96/64 100 Room Air 05/18/17 11:35 36.2 103 16 119/80 99 Room Air Anesthetic Administered: MAC Level of Alertness: Awake, talking BEAR's with Equal Strength: Yes Pain: No Nausea or Vomiting: No CV Function & Hydration Stable: Yes Airway Device: none Lungs: Clear to Auscultation, Normal Air Movement Dermatome Level: Full Sensation PACU Phase 2 Assessment Complications: No Follow up Care: No Patient Instructions Provided: N/A Kamar Maldonado MD May 18, 2017 16:03
--- NOTE | 2017-05-19 01:36 | ENDO ---
[address] [address] ENDOSCOPY PROCEDURE PATIENT: MORTEZA DIXON : 1950 MR#: [id number] ADMIT: 05/18/2017 JOB ID: [id number] PROCEDURE: Esophagogastroduodenoscopy. INDICATION: Epigastric pain. Please see Dr. Kamar Maldonado's anesthesia report for details regarding ASA classification, Mallampati score, and medications. INSTRUMENT USED: GIF-H180-J. PROCEDURE DETAILS: After informed consent was obtained, the patient was brought into the GI suite, where she was placed on oxygen via nasal cannula and monitored with continuous pulse oximeter, telemetry, and blood pressure monitoring. A time-out was performed. Then, she was placed in a left lateral decubitus position and a bite block was placed. The standard EGD scope was inserted through the bite block and advanced without difficulty to the second portion of duodenum. FINDINGS: 1. Normal-appearing duodenal bulb, first and second portion. Multiple random biopsies were obtained. 2. Normal-appearing pylorus. In the antrum and body of stomach, there was mild erythema suggestive of mild gastritis. Multiple random biopsies were obtained. 3. Retroflexed views in the gastric body revealed a normal-appearing cardia and fundus. 4. The top of the gastric folds were approximately 34 cm. There were several short tongues of salmon-colored mucosa extending up to 30 cm. Multiple random biopsies were obtained. The remainder of the esophagus otherwise unremarkable. IMPRESSION: 1. Mild gastritis. 2. 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 RECOMMENDATIONS: 1. Await biopsy results. 2. Proceed to colonoscopy. COMPLICATIONS: None. ESTIMATED BLOOD LOSS: Less than 5 mL.
--- NOTE | 2017-05-19 01:41 | ENDO ---
[address] [address] ENDOSCOPY PROCEDURE PATIENT: MORTEZA DIXON : 1950 MR#: [id number] ADMIT: 05/18/2017 JOB ID: [id number] PROCEDURE PERFORMED: Colonoscopy. INDICATION: Abdominal pain. Please see above for ASA classification, Mallampati score, and medications. INSTRUMENT USED: PCF-H180-AL. PREPARATION QUALITY: Fair. PROCEDURE DETAILS: After completion of the EGD exam, the patient was turned and then a digital rectal exam was performed which was unremarkable. The colonoscope was then inserted into the rectum and advanced under direct visualization to the terminal ileum which was identified by the presence of the ileocecal valve and villous-appearing mucosa of the terminal ileum. Once the terminal ileum was reached, the colonoscope was withdrawn back into the rectum as the mucosa and lumen were examined. In the rectum, retroflexion was performed. Following retroflexion, remaining air in the rectum was suctioned, and procedure was completed. FINDINGS: 1. Normal-appearing terminal ileum. 2. In the cecum, there was an approximately 5 mm sessile polyp that was removed with a cold snare. 3. In the transverse colon, there were two polyps ranging in size from 3 mm to 4 mm. Both removed with a cold snare. The remainder of the colon exam was otherwise unremarkable. There were a few scattered diverticula in the sigmoid colon. IMPRESSION: 1. Cecal polyp. 2. Two transverse colon polyps. 3. Sigmoid diverticulosis. RECOMMENDATIONS: 1. Await polyp pathology results. 2. Follow up in GI clinic. No findings on upper endoscopy and colonoscopy to explain the patient's epigastric abdominal pain. Would recommend cross-sectional imaging with CT of the abdomen and pelvis. COMPLICATIONS: None. ESTIMATED BLOOD LOSS: Less than 5 mL.
--- NOTE | 2017-05-20 15:08 | PATH ---
SURGICAL PATHOLOGY Attending Physician:Bessy Mullen CASE STATUS: Signed Out PATIENT NAME: MORTEZA DIXON PID: [id number] : 1950 DATE COLLECTED:05/18/2017 21:12 SPECIMEN: 1: Duodenum, Biopsy 2: Gastric, Biopsy 3: Esophagus, Biopsy 4: Colon, Polyp 5: Colon, Polyp CLINICAL HISTORY: 1). DUODENUM BIOPSY 2). RANDOM GASTRIC BIOPSY, RULE OUT H.PYLORI 3). DISTAL ESOPHAGUS BIOPSY 4). CECAL POLYP 5). TRANSVERSE COLON POLYP FINAL DIAGNOSIS: 1. Duodenum, Biopsy: Superficial portions of duodenal mucosa with no diagnostic abnormality. No active inflammation, features of sprue, dysplasia, or malignancy. 2. Random Gastric Biopsy: Portions of gastric body-type and antral mucosa with chronic active gastritis. Organisms consistent with H. pylori identified by immunohistochemistry studies. Negative for intestinal metaplasia, dysplasia, and malignancy. 3. Distal Esophagus, Biopsy: Squamocolumnar junctional mucosa with a detached fragment of columnar tissue demonstrating intestinal metaplasia/Lester's metaplasia. Negative for dysplasia and malignancy. 4. Cecum, Polyp, Biopsy: Portions of tubular adenoma x 5; negative for high-grade dysplasia. Superficial portions of colorectal mucosa x6 with no diagnostic abnormality. 5. Transverse Colon, Polyp, Biopsy: Portions of tubular adenoma x2; negative for high-grade dysplasia. Superficial portion of colorectal mucosa x1 with no diagnostic abnormality. ICD10: K63.5 GROSS DESCRIPTION: The specimen is received in five formalin filled containers labeled with the patient's name. 1). The specimen is labeled "duodenum" and consists of 2 portions of tissue which aggregate to 0.3 x 0.2 x 0.2 CM. The specimen is entirely submitted in cassette 1A. 2). The specimen is labeled "gastric" and consists of multiple portions of tissue which aggregate to zero 3 x 0.3 x 0.2 CM. The specimen is entirely submitted in cassette 2A. 3). The specimen is labeled "distal esophagus" and consists of 2 portions of tissue which aggregate to 0.3 x 0.3 x 0.2 CM. The specimen is entirely submitted in cassette 3A. 4). The specimen is labeled "cecal polyp" and consists of multiple portions of tissue which aggregate to 0.3 x 0.3 x 0.2 CM. The specimen is entirely submitted in cassette 4A. 5). The specimen is labeled "transverse colon polyp" and consists of 3 portions of tissue which aggregate to 0.3 x 0.3 x 0.2 CM. The specimen is entirely submitted in cassette 5A. 05/18/2017DC MICRO DESCRIPTION: 2. Random gastric biopsy: Immunostains are performed to further evaluate for the presence of Helicobacter organisms. The patient tissue is stained with monoclonal antibody to Helicobacter pylori (SP48). Positive and negative controls stain appropriately. Result: Positive. * This test was developed and its performance characteristics determined by [facility]. It has not been cleared or approved by the U.[place]. Food and Drug Administration. The FDA has determined that such clearance or approval is not necessary. This test is used for clinical purposes. It should not be regarded as investigational or for research. ICD-9 CODES: CPT CODES: 1: 34907 2: 46644, 50325 3: 74746 4: 86033 5: 67065 Electronically Signed Out Sindhu Medina MD [facility] [address], [place] [address] Technical component performed at [facility], [address], [place], [address]
== END | disposition home or self-care (01) ==
LOC: END 00:48
PROVIDERS: ATTEND Internal Medicine Gastroenterology
DX: R10.13 Epigastric pain (principal); D12.0 Benign neoplasm of cecum; D12.3 Benign neoplasm of transverse colon; K57.30 Diverticulosis of large intestine without perforation or abscess without bleeding; K29.50 Unspecified chronic gastritis without bleeding; E11.9 Type 2 diabetes mellitus without complications; R07.89 Other chest pain; R13.10 Dysphagia, unspecified; R51 Headache; M81.8 Other osteoporosis without current pathological fracture; F32.9 Major depressive disorder, single episode, unspecified; Z87.442 Personal history of urinary calculi; Z79.4 Long term (current) use of insulin; Z79.899 Other long term (current) drug therapy; Z79.84 Long term (current) use of oral hypoglycemic drugs
CPT/HCPCS: 43239; 45385; 88305; 88342; J1815; J2704